=== PATIENT | male | born 1990 | race African-American/Black ===

== ENCOUNTER 2019-09-27 17:09 | Emergency (ER) | payer OTHER ==
[2019-09-27] MEDS ORDERED: LISINOPRIL5 MG PO (17:22)
[2019-09-27] MEDS ORDERED: LIPITOR20 M1 PO (17:22)
[2019-09-27] MEDS ORDERED: NAPROXEN500 MG PO (18:54)
[2019-09-27 18:59] VITALS: BP 169/88
== END 2019-09-27 19:07 | disposition home or self-care (01) | DRG 563 ==
LOC: ED 17:09
DX: S83.91XA Sprain of unspecified site of right knee, initial encounter (principal); I10 Essential (primary) hypertension; V53.5XXA Driver of pick-up truck or van injured in collision with car, pick-up truck or van in traffic accident, initial encounter